=== PATIENT | male | born 2000 | race Caucasian/White ===

== ENCOUNTER 2023-12-03 10:03 | Emergency (ER) | payer SELFPAY ==
[2023-12-03 10:05] VITALS: BP 118/70
--- NOTE | 2023-12-03 10:46 | ED.GENMED ---
History of Present Illness
General
Chief Complaint: Male Genito-Urinary Symptoms
Source: patient
Time Seen by Provider: 12/03/23 10:18
History of Present Illness
History of Present Illness:
23-year-old male presenting to the emergency department for evaluation of left-sided testicular pain described to be gradual in onset and more of a dull aching sensation, nonradiating since Monday, unchanged today prompting them to come to the ER
for further evaluation. Patient has no other symptoms including urinary frequency, urgency, dysuria, hematuria, urethral discharge, sores or lesions, scrotal edema, back or flank pain. Patient denies any history of similar. Patient is sexually
active with 1 female partner noting vaginal intercourse only. Patient does not have concern for STI.
Past History
Past History
ED Past Medical History: None
ED Past Surgical History: None
Social History
Tobacco: Non-smoker
Alcohol: Occasional
Drug: None
Personal: Single
Living: with family
Employment: Employed
Review of Systems
Review of Systems
All Other Systems: ROS reviewed and negative except as documented in HPI and ROS
Phy Exam
Physical Exam
Physical Exam:
GENERAL: Alert , in no apparent distress
EYE: conjunctiva clear
Head: Normocephalic atraumatic
NECK: Supple,
ENT: mmm.
LUNGS: no acute respiratory distress
ABDOMEN: Soft, NTND
GENITOURINARY: Circumcised no urethral discharge, no lesions or sores, no testicular edema or focal tenderness, no hernias or masses appreciated
NEUROLOGICAL: Alert and oriented
SKIN: Warm and dry, skin intact.
MUSCULOSKELETAL: well perfused.
PSYCH: Normal and appropriate interaction.
Scores
Heart Failure Risk
Heart Failure Risk Score: Not Applicable
Heart Score for Chest Pain Patients
STEMI patient?: Not applicable
Withdrawal Assessment of Alcohol
Withdrawal Assessment Completed?: Not applicable
Course
Orders/Labs/Results
Orders:
Orders
12/03/23 10:18
US Scrotum Urgent
Comment:
Reason For Exam: left testicular pain
12/03/23 10:50
Urinalysis Reflex To Culture Urgent
Date Specimen was Collected: 12/03/23
Time Specimen was Collected: 10:46
Vital Signs
Initial and Last Documented VS:
Initial Vital Signs
Temp Pulse Resp BP Pulse Ox
97.9 F 82 18 118/70 99
12/03/23 10:05 12/03/23 10:05 12/03/23 10:05 12/03/23 10:05 12/03/23 10:05
Last Documented Vital Signs
Temp Pulse Resp BP Pulse Ox
97.9 F 82 18 118/70 99
12/03/23 10:05 12/03/23 10:05 12/03/23 10:05 12/03/23 10:05 12/03/23 10:05
MDM/Problems Addressed
Differential Diagnosis Includes:
testicular torsion, epididymitis, orchiitis, varicocele, hydrocele, STI considered
MDM/Problems Addressed:
23-year-old male presenting the emergency department for nontraumatic left-sided testicular pain since Monday, no other associated symptoms. Patient notes that he is sexually active with 1 female partner but has no concern for STI. Patient would
like to also defer STI testing as he does not have insurance and states he can go to the local free clinic for this. Patient is amenable to having a urinalysis completed as well as a scrotal ultrasound. Medically anticipate discharge home and
outpatient follow-up
*Radiology
Radiology exam reviewed: radiology read reviewed
*Pulse Oximetry
Patient hypoxic: no
*Critical Care Note
Total Time (30-74mins, 75-104mins- exclusive of procedures): Not Applicable
Patient Management
Escalation/DeEscalation of care consider admission/obs:
Patient's ultrasound is without any acute abnormalities. Urinalysis is also without any signs of infection or hematuria. At this time I do think it is reasonable for patient to be discharged home and can continue outpatient workup with urology as
needed. Aware of return precautions to the ER.
ED Attending Note
-
Portions of this chart may have been created with voice recognition software.� Occasional wrong word or��sound alike� substitutions may have occurred due to the inherent limitations of voice recognition software.
Discharge Plan
Departure
Patient Disposition: Home (Routine Discharge)
Date of Disposition: 12/03/23
Time of Disposition: 12:03
Patient with high blood pressure during this ER visit?: No
Discharge Problem:
Left testicular pain
Prescriptions:
No Action
Amphetamine Salt Combo
15 mg PO DAILY
Referrals:
Joey White DO [Family Provider] -
Henry Mtz MD [Active] - (Urology)
Interventions
Interventions:
*Risk Screen - Suicide Last Done: 12/03/23 10:05
*General Assessment Last Done: 12/03/23 10:05
*Nursing Disposition Last Done: 12/03/23 12:07
ED-Male Genitourinary Assessment Last Done: 12/03/23 10:17
Discharge Date and Time
Discharge Date/Time: 12/03/23 12:07
Print Language: YAKUT
[2023-12-03 11:07] LABS: Urine Albumin Negative (Neg - Trace); Urine Bilirubin Negative (Negative); Urine Character Clear (Clear); Urine Color Yellow; Urine Glucose Negative (Negative); Urine Ketone Negative (Negative); Urine Leukocyte Negative (Negative); Urine Nitrite Negative (Negative); Urine Occult Blood Negative (Negative); Urine Specific Gravity 1.015 (<1.030); Urine Urobilinogen Negative (Neg - 1+)
== END 2023-12-03 12:07 | disposition home or self-care (01) ==
LOC: EMR 10:03
PROVIDERS: Physician Assistant Medical; EMERGENCY PHYSICIAN Emergency Medicine; FAMILY PHYSICIAN Family Medicine
DX: N50.812 Left testicular pain (principal); Z59.7 Insufficient social insurance and welfare support
CPT/HCPCS: 99284; 76870; 81003; 93976